=== PATIENT | female | born 1945 | race Caucasian/White ===

== ENCOUNTER 2017-06-20 19:54 | Emergency (ER) | payer MEDICARE, OTHER ==
[2017-06-20 20:36] VITALS: BP 164/78
--- NOTE | 2017-06-20 20:58 | UC ---
Back Pain HPI - HPI Summary HPI Summary: States she was working on her computer when she started feeling pain in upper back and arms, persisting for the past 10 hrs. She states it feels like a tingling on the elbows 'as if she had hit her funny bone". Also states that she has had some URI symptoms with occasional dry cough. Denies fever, denies n/v/ d. Denies anterior chest pain or neck pain. States she takes her medications daily and her blood pressure is well controlled around 125/80-135/85mmHG - History of Current Complaint Chief Complaint: UCUpperExtremity Stated Complaint: ARM AND BACK PAIN Time Seen by Provider: 06/20/17 20:32 - Allergies/Home Medications Allergies/Adverse Reactions: Allergies Allergy/AdvReac Type Severity Reaction Status Date / Time Penicillins [PCN] Allergy Unknown Verified 07/31/14 08:05 Reaction Details Sulfa Antibiotics Allergy Unknown Verified 07/31/14 08:05 Reaction Details PMH/Surg Hx/FS Hx/Imm Hx Endocrine History: Hypothyroidism Cardiovascular History: Hypertension Respiratory History: Other - FRANKY Other Respiratory History: FRANKY - Surgical History Surgical History: Yes Surgery Procedure, Year, and Place: bilat artifical knees, hip, thyroid removed , d&c X2 - Social History Alcohol Use: Occasionally Substance Use Type: None Smoking Status (MU): Never Smoked Tobacco Review of Systems Constitutional: Negative ENT: Negative Respiratory: Cough Cardiovascular: Negative Genitourinary: Negative Motor: Negative Neurovascular: Negative Musculoskeletal: Other: - pain on arms and upper back Neurological: Negative Psychological: Negative All Other Systems Reviewed And Are Negative: Yes Physical Exam Triage Information Reviewed: Yes Appearance: Well-Appearing Vital Signs: Initial Vital Signs Temp 97.0 F 06/20/17 19:55 Pulse 101 06/20/17 19:55 Resp 18 06/20/17 19:55 BP 183/88 06/20/17 19:55 Pulse Ox 98 06/20/17 19:55 Vital Signs Reviewed: Yes ENT Exam: Normal Neck exam: Normal, Other - no carotid bruits Respiratory Exam: Normal Cardiovascular Exam: Normal Abdominal Exam: Normal Bowel Sounds: Positive: Present Musculoskeletal Exam: Other - limited ROM neck on rotation to left spurling equivocal on left. Negative impingement sign Musculoskeletal: Positive: Other: - tender along toracic spine on palpation. FROM UE, sensory intact Back Pain Course/Dx - Course Course Of Treatment: Start naproxen 500mg po every 12 hrs. Patient states she has medication at home. Follow up with Dr. Bartlett. - Differential Dx/Diagnosis Provider Diagnoses: cervical radiculopathy. dorsalgia. HTN Discharge - Discharge Plan Condition: Stable Disposition: HOME Patient Education Materials: Cervical Radiculopathy (ED), Hypertension (ED) Referrals: Nicolas Bartlett MD [Primary Care Provider] -
--- NOTE | 2017-06-20 21:22 | RAD ---
Indication: Back pain. 2 views of the chest including dual energy PA views demonstrate no mediastinal shift. Heart is of normal size and configuration. Lung mcmahon are clear. IMPRESSION: NO ACTIVE CARDIOPULMONARY DISEASE IS NOTED.
== END 2017-06-20 21:40 | disposition home or self-care (01) ==
LOC: UCEAST 19:54
DX: M54.12 Radiculopathy, cervical region (principal); M54.9 Dorsalgia, unspecified; I10 Essential (primary) hypertension; I45.10 Unspecified right bundle-branch block; E03.9 Hypothyroidism, unspecified; G47.33 Obstructive sleep apnea (adult) (pediatric); Z88.0 Allergy status to penicillin; Z88.2 Allergy status to sulfonamides
CPT/HCPCS: 71020; 93005; 99212; G0463